=== PATIENT | male | born 1990 | race Caucasian/White ===

== ENCOUNTER 2019-05-27 08:07 | Outpatient (CLI) | payer OTHER ==
[2019-05-27] MEDS ORDERED: IOVERSOL 320 50 ML VIAL ONE (08:27)
[2019-05-27] MEDS ORDERED: IOVERSOL 320 100 ML VIAL IVP ONE ×2 (08:27→09:38)
[2019-05-27] MEDS ORDERED: IOVERSOL 320 50 ML VIAL PO ONE (09:38)
--- NOTE | 2019-05-27 19:34 | CT Report ---
Reason: R LOWER ABD PAIN Procedure Date: 05/27/2019 Accession Number: [id number] / [id number] Procedure: CT - Abdomen/Pelvis W CPT Code: FULL RESULT: EXAM: CT ABDOMEN AND PELVIS EXAM DATE: 05/27/2019 09:41 AM. CLINICAL HISTORY: R LOWER ABD PAIN. COMPARISONS: None. TECHNIQUE: Routine helical CT imaging was performed through the abdomen and pelvis. IV contrast: OPTI 320 90ML. Enteric contrast: No. Reconstructions: Coronal and sagittal. In accordance with CT protocol optimization, one or more of the following dose reduction techniques were utilized for this exam: automated exposure control, adjustment of mA and/or KV based on patient size, or use of iterative reconstructive technique. FINDINGS: ABDOMEN: Lung Bases: Incompletely included lower lungs are grossly clear. Heart size is within normal limits. No basilar effusions. Liver: Unremarkable. Spleen: Unremarkable. Pancreas: Unremarkable. Gallbladder/Bile Ducts: Gallbladder is unremarkable. Biliary tree is normal caliber. Adrenal Glands: Unremarkable. Kidneys: No mass, calculi, or hydronephrosis. Peritoneum/Mesentery/Bowel: No free fluid, free air, or collection. No intestinal obstruction or inflammation. The appendix is within normal limits. Lymph nodes: No mesenteric, periportal, or retroperitoneal lymphadenopathy. Vasculature: Abdominal aorta is nonaneurysmal. Portal vein is patent. Hepatic veins are patent. PELVIS: The bladder is unremarkable for the degree of distention. Prostate is present. No pelvic lymphadenopathy. Bones: No suspicious osseous lesions. IMPRESSION: No acute abnormalities. RADIA
== END 2019-05-27 08:08 | disposition home or self-care (01) ==
LOC: DI 08:07
PROVIDERS: ATTEND Nurse Practitioner Family
DX: R10.30 Lower abdominal pain, unspecified (principal)
CPT/HCPCS: 74177; Q9967

== ENCOUNTER 2023-09-07 07:34 | Day surgery (SDC) | payer OTHER ==
[2023-09-07] MEDS ORDERED: LACTATED RINGERS 1,000 ML IV ONE (07:37)
[2023-09-07 07:51] VITALS: O2SAT 100
[2023-09-07] MEDS ORDERED: LIDOCAINE-MPF 1% 30 ML VIAL ONE (09:08)
[2023-09-07] MEDS ORDERED: BACITRACIN ZINC OINT 1 PACKET TOP ONE (09:08)
[2023-09-07] MEDS ORDERED: MIDAZOLAM 2 MG/2 ML VIAL ONE (09:11)
[2023-09-07] MEDS ORDERED: PROPOFOL 500 MG/50 ML 500 MG/50 ML VIAL ONE (09:12)
--- NOTE | 2023-09-07 09:31 | ANESTHESIA ---
Pre-Anesthesia VS, & Labs - Diagnosis desires sterilization - Procedure vasectomy Vital Signs: Temp Pulse Resp BP Pulse Ox O2 Flow Rate 36.6 C 80 16 128/79 100 09/07/23 07:37 09/07/23 07:37 09/07/23 07:37 09/07/23 07:37 09/07/23 07:37 Height: 6 ft 2 in Weight (kg): 94.8 kg Body Mass Index: 26.8 BMI Classification: Overweight - NPO >8 hours Home Medications and Allergies Home Medications: Ambulatory Orders Cholecalciferol [Vitamin D3] 50 mcg PO DAILY 09/02/23 Cholecalciferol [Vitamin D3] 50 mcg PO DAILY 09/02/23 Allergies/Adverse Reactions: Allergies Allergy/AdvReac Type Severity Reaction Status Date / Time peanut Allergy Anaphylaxis Verified 09/02/23 15:14 tree nut Allergy Anaphylaxis Verified 09/02/23 15:14 Anes History & Medical History - Anesthetic History Anesthesia Complications: reports: No previous complications Family history of Anesthesia Complications: Denies Family history of Malignant Hyperthermia: Denies - Medical History Cardiovascular: reports: None Pulmonary: reports: None Gastrointestinal: reports: None Urinary: reports: None Musculoskeletal: reports: Chronic back pain Endocrine/Autoimmune: reports: HyPERthyroidism Skin: reports: Eczema Smoking Status: Current every day smoker Psychosocial: reports: No issues indicated Exam General: Alert, Oriented x3, Cooperative Dental: WNL Mouth Openin Fingerbreadth Neck Mobility: Normal Mallampati classification: II Thyromental Distance: less than 4 cm Respiratory: Lungs clear Plan Anesthesia Type: General, Total IV Consent for Procedure(s) Verified and Reviewed: Yes Code Status: Attempt Resuscitation ASA classification: 2-Mild systemic disease Is this case an emergency?: No
[2023-09-07] MEDS ORDERED: LIDOCAINE 1% 50 ML MDV SUBQ ONE (09:33)
[2023-09-07] MEDS ORDERED: HYDROcod/ACETAM 5/325 MG TABLET PO PRN (09:35)
--- NOTE | 2023-09-07 09:38 | Discharge Plan ---
Discharge Plan Problem Reviewed?: Yes Disposition: 01 Home, Self Care Diet: Regular Activity Restrictions: Additional Comments (Minimal activity for 48 hours. For the next week slow activity, no exercise or sexual activity. You can shower tomorrow but no bathing for 1 full week. You must use a secondary contraceptive for 3 months until you have a confirmatory semen analysis to confirm no sperm in your semen) Instruction Topics: Vasectomy No Scalpel No Smoking: If you smoke, Please STOP! Call for help.
--- NOTE | 2023-09-07 09:41 | OPERATIVE REPORT ---
Operative Report - General Procedure Date: 09/07/23 Planned Procedure: Bilateral Vasectomy Pre-Op Diagnosis: Elective Sterilization Procedure Performed: Bilateral Vasectomy Post Op Diagnosis: Elective Sterilization - Procedure Note Primary Surgeon: Lj Anesthesia Provider: JAVIER Findings: normal vasectomy Complications: none - Other Other Information/Narrative: After informed consent was obtained the patient was brought to the OR and laid in the supine position. At that point time the patient was anesthetized per anesthesia protocols and prepped and draped in usual sterile fashion. A timeout was performed reconfirming the patient procedure and laterality. His left vas deferens was identified and a wheal of lidocaine 1% was used for local in the scrotal skin. This was then dissected using a sharp mosquito and no scalpel technique. The vas was grasped using a ring clamp and brought through the skin. The sheath was gently incised and the vas was grasped and dissected out. The vas was clamped on both sides and a small segment was cauterized away the ends were cauterized as well. These ends were suture- ligated using 3-0 chromic suture and then these were replaced into the scrotum after a fascial interposition stitch with 3-0 chromic. The there was excellent hemostasis. The skin was then closed using 3-0 chromic suture. Attention was paid to the right side where an identical procedure was performed. Band-Aids were placed. This included the procedure the patient tolerated procedure well and was brought to the PACU without incident. All counts were correct.
[2023-09-07] MEDS ORDERED: LACTATED RINGERS 150 ML IV ONE (09:45)
[2023-09-07 10:10] VITALS: BP 121/73
--- NOTE | 2023-09-07 11:06 | ANESTHESIA POST OP EVALUATION ---
Anesthesia Post Eval - Post Anesthesia Eval Vitals: Last Vital Signs Temp 36.3 C L 09/07/23 09:57 Pulse 70 09/07/23 09:57 Resp 14 09/07/23 09:57 BP 121/73 09/07/23 09:57 Pulse Ox 100 09/07/23 09:57 O2 Flow Rate CV Function Including HR & BP: Stable Pain Control: Satisfactory Nausea & Vomiting: Negative Mental Status: Baseline Respiratory Status: Airway Patent Hydration Status: Satisfactory Anesthesia Complications: None
== END 2023-09-07 07:35 | disposition home or self-care (01) ==
LOC: OR 07:34
PROVIDERS: ATTEND Urology
DX: Z30.2 Encounter for sterilization (principal); F17.200 Nicotine dependence, unspecified, uncomplicated